=== PATIENT | female | born 1965 | race Asian ===

== ENCOUNTER 2018-02-27 15:30 | Outpatient (RCR) | payer OTHER | END 2018-03-24 | disposition home or self-care (01) | LOC: PTY 15:30 | DX: M72.2 Plantar fascial fibromatosis (principal); M67.00 Short Achilles tendon (acquired), unspecified ankle ==

== ENCOUNTER 2018-03-26 15:56 | Outpatient (RCR) | payer OTHER | END 2018-04-24 | disposition home or self-care (01) | LOC: PTY 15:56 | DX: M72.2 Plantar fascial fibromatosis (principal); M67.00 Short Achilles tendon (acquired), unspecified ankle ==

== ENCOUNTER 2018-04-28 15:48 | Outpatient (RCR) | payer OTHER | END 2018-05-24 | disposition home or self-care (01) | LOC: PTY 15:48 | DX: M72.2 Plantar fascial fibromatosis (principal); M67.00 Short Achilles tendon (acquired), unspecified ankle | CPT/HCPCS: 97110; 97140; G0283 ==